=== PATIENT | female | born 1965 | race Caucasian/White ===

== ENCOUNTER 2017-07-18 19:24 | Emergency (ER) | payer MEDICAID ==
[~2017-07-18] VITALS: Ht 162.6 cm; Wt 63.0 kg
[2017-07-18 19:32] VITALS: BP 133/94
== END 2017-07-19 00:05 | disposition left against medical advice (07) ==
LOC: ER 19:24
DX: R10.12 Left upper quadrant pain (principal); Z90.49 Acquired absence of other specified parts of digestive tract
CPT/HCPCS: 99281